=== PATIENT | female | born 1995 | race African-American/Black ===

== ENCOUNTER 2023-08-24 12:04 | Emergency (ER) | payer OTHER ==
[~2023-08-24] VITALS: Ht 165.1 cm; Wt 59.0 kg
[2023-08-24 12:08] VITALS: O2SAT 98
[2023-08-24] MEDS: LEVETIRACETAM 500MG PREMIX 100 ML IV ONE (13:12)
[2023-08-24] MEDS: SODIUM CHLORIDE 0.9% 1,000 ML IV ONE (13:19)
[2023-08-24] MEDS: LIDOCAINE HCL/EPINEPHRINE 1%-EPI 1:100,000 20 ML VIAL INFIL ONE (14:14)
[2023-08-24 14:24] LABS: BASOPHILS % 0.4 % (0.0-2.0); EOSINOPHILS % 0.8 % (0.0-5.0); HEMOGLOBIN. 11.9 g/dL (12.0-16.0); LYMPHOCYTES % 18.7 % (20.0-50.0); MEAN CORPUSCULAR HEMOGLOBIN 27.3 pg (28.0-32.0); MEAN CORPUSCULAR HGB CONC 32.2 g/dL (31.0-37.0); MEAN CORPUSCULAR VOLUME 84.7 fL (81.0-99.0); MEAN PLATELET VOLUME 7.6 fl (7.4-10.4); MONOCYTES % 8.1 % (2.0-8.0); PLATELET 306 x1000/uL (130-400); RED BLOOD CELL COUNT 4.36 mill/uL (4.2-5.4); RED CELL DISTRIBUTION WIDTH 14.4 % (11.6-14.6); WHITE BLOOD COUNT 6.1 x1000/uL (4.5-11.0)
[2023-08-24] MEDS: TETANUS, DIPHTHERIA, PERTUSSIS VAC/PF 0.5ML (>10YR OLD) IM ONE (14:26)
[2023-08-24 14:27] LABS: CHLORIDE 104 mEq/L (98-107); POTASSIUM 3.8 mEq/L (3.5-5.1); SODIUM 136 mEq/L (136-145)
[2023-08-24 14:28] LABS: CARBON DIOXIDE 22 mEq/L (21-32)
[2023-08-24 14:29] LABS: CALCIUM 8.9 mg/dL (8.7-10.4)
[2023-08-24 14:32] LABS: HCG SCREEN POSITIVE
[2023-08-24 14:33] LABS: CREATININE 0.7 mg/dL (0.6-1.0); GLUCOSE 84 mg/dL (70-105)
[2023-08-24 14:34] LABS: UREA NITROGEN BLOOD 10 mg/dL (9-23)
[2023-08-24 14:35] LABS: ALANINE AMINOTRANSFERASE 8 IU/L (10-49); ALBUMIN 4.1 g/dL (3.2-4.8); ASPARTATE AMINOTRANSFERASE 17 IU/L (<34)
[2023-08-24 14:36] LABS: BILIRUBIN TOTAL 0.5 mg/dL (0.1-1.0)
[2023-08-24] MEDS: ACETAMINOPHEN 325MG TABLET PO ONE (15:41)
[2023-08-24 16:37] VITALS: BP 106/66; PULSE 75; RESP 20; TEMP 98.6
== END 2023-08-24 17:03 | disposition home or self-care (01) ==
LOC: ER 12:24
DX: S01.112A Laceration without foreign body of left eyelid and periocular area, initial encounter (principal); G40.909 Epilepsy, unspecified, not intractable, without status epilepticus; X58.XXXA Exposure to other specified factors, initial encounter; Y93.89 Activity, other specified; Y92.89 Other specified places as the place of occurrence of the external cause; Y99.8 Other external cause status
CPT/HCPCS: 80053; 84703; 85025; 36415; 90715; 12013; 90471; 96365; 99284; J1953; J3490; J7030; Z7610 ×5